=== PATIENT | female | born 1935 | race Two or more races ===

== ENCOUNTER 2017-09-29 12:39 | Outpatient (CLI) | payer OTHER ==
[~2017-09-29 12:39] MED LIST: ASMANEX0.24 G1 IH; BACTRIM DS TAB1 EACH PO; BRONCOTRON LIQ118 ML PO; CARDIZEM SR120 MG PO; CARTIA XT120 MG PO; DICLOFENAC SODI50 MG PO; DIOVAN40 MG; FORADIL12 MCG IH; GABAPENTIN600 MG PO; IPRAT-ALBUT 0.5-3 ML; LOTRISONE CREAM45 GM TOP; MEDROL8 MG; METAXALL800 MG; MORGIDOX100 MG; NEURONTIN300 MG PO; ORAPRED ODT10 MG/TAB PO; PREDNISOLONE5 MG PO; SINGULAIR 10MG10 MG PO; SYNTHROID100 MCG PO; TIZANIDINE HCL2 MG PO; TRAMADOL HCL50 MG PO; XOPENEX0.63 MG/3 IH; [UNRECOGNIZED DRUG - OTHER]
== END 2017-09-29 12:41 | disposition home or self-care (01) ==
LOC: SONOGRAMA 12:39
DX: M25.512 Pain in left shoulder (principal); M25.412 Effusion, left shoulder; M75.82 Other shoulder lesions, left shoulder

== ENCOUNTER 2018-02-21 21:37 | Emergency (ER) | payer OTHER ==
[~2018-02-21] VITALS: Ht 149.9 cm; Wt 46.3 kg
[2018-02-21] MEDS ORDERED: NEURONTIN300 MG PO (23:38)
[2018-02-21] MEDS ORDERED: ULTRACET PO (23:38)
== END 2018-02-21 23:37 | disposition home or self-care (01) ==
LOC: ER 21:37
DX: G57.82 Other specified mononeuropathies of left lower limb (principal)

== ENCOUNTER 2018-10-30 10:12 | Outpatient (CLI) | payer OTHER ==
[~2018-10-30 10:12] MED LIST changes: +ULTRACET PO
== END 2018-10-30 10:24 | disposition home or self-care (01) ==
LOC: TOM 10:12 → RX STUDY 10:12
DX: K63.5 Polyp of colon (principal); R10.13 Epigastric pain; K56.600 Partial intestinal obstruction, unspecified as to cause

== ENCOUNTER 2018-11-21 08:27 | Outpatient (CLI) | payer OTHER | END 2018-11-21 08:32 | disposition home or self-care (01) | LOC: RX STUDY 08:27 | DX: R10.13 Epigastric pain (principal) ==

== ENCOUNTER 2019-06-08 12:01 | Emergency (ER) | payer OTHER ==
[~2019-06-08] VITALS: Ht 144.8 cm; Wt 45.8 kg
== END 2019-06-08 15:44 | disposition home or self-care (01) ==
LOC: ER 12:01
DX: S70.01XA Contusion of right hip, initial encounter (principal); W18.39XA Other fall on same level, initial encounter; Y93.89 Activity, other specified; Y92.89 Other specified places as the place of occurrence of the external cause; Y99.8 Other external cause status

== ENCOUNTER 2020-01-14 13:41 | Emergency (ER) | payer OTHER ==
[~2020-01-14] VITALS: Ht 149.9 cm; Wt 46.3 kg
[2020-01-14] MEDS ORDERED: SYMBICORT 16010.2 GM (13:55)
[2020-01-14] MEDS ORDERED: PLAVIX75 MG (13:55)
[2020-01-14] MEDS ORDERED: LOSARTAN POTASS50 MG (13:55)
[2020-01-14] MEDS ORDERED: BACLOFEN10 MG (13:56)
[2020-01-14] MEDS ORDERED: PLETAL (13:56)
[2020-01-14] MEDS ORDERED: NASAL MIST126 ML (13:57)
== END 2020-01-14 15:31 | disposition home or self-care (01) ==
LOC: ER 13:41
DX: M25.511 Pain in right shoulder (principal)

== ENCOUNTER 2020-06-27 13:01 | Emergency (ER) | payer OTHER ==
[~2020-06-27] VITALS: Ht 144.8 cm; Wt 45.4 kg
[~2020-06-27 13:01] MED LIST changes: +BACLOFEN10 MG; +LOSARTAN POTASS50 MG; +NASAL MIST126 ML; +PLAVIX75 MG; +PLETAL; +SYMBICORT 16010.2 GM
[2020-06-27] MEDS ORDERED: METHYLPREDNISOLO8 MG PO (13:29)
[2020-06-27] MEDS ORDERED: LOSARTAN-HCTZ1 EAC1 PO (13:30)
== END 2020-06-27 15:51 | disposition home or self-care (01) ==
LOC: ER 13:01
DX: L03.116 Cellulitis of left lower limb (principal)